=== PATIENT | male | born 1990 | race Caucasian/White ===

== ENCOUNTER 2016-12-04 13:02 | Emergency (ER) | payer OTHER ==
[2016-12-04] MEDS ORDERED: Sodium Chloride 0.9% 1,000 ML IV ONE (13:23)
--- NOTE | 2016-12-04 13:28 | EDM.PDOC ---
ED HPI GENERAL MEDICAL PROBLEM - General Chief Complaint: Genitourinary Problem Stated Complaint: PAIN IN BOTTOM LOWER BODY Time Seen by Provider: 12/04/16 13:23 Source of Information: Reports: Patient History Limitations: Reports: No Limitations - History of Present Illness INITIAL COMMENTS - FREE TEXT/NARRATIVE: History of present illness: [26-year-old male comes in complaining of genitourinary pain. Patient indicates that he had this pain once before in his scrotum but that was also in his flank at that time and it was secondary to a kidney stone. Now he is indicating that the pain is back but it is only in the scrotum not in the flank as it was prior. ] Review of systems: As per history of present illness and below otherwise all systems reviewed and negative. Past medical history: As per history of present illness and as reviewed below otherwise noncontributory. Surgical history: As per history of present illness and as reviewed below otherwise noncontributory. Social history: No reported history of drug or alcohol abuse. Family history: As per history of present illness and as reviewed below otherwise noncontributory. Physical exam: HEENT: Atraumatic, normocephalic, pupils reactive, negative for conjunctival pallor or scleral icterus, mucous membranes moist, throat clear, neck supple, nontender, trachea midline. Lungs: Clear to auscultation, breath sounds equal bilaterally, chest nontender. Heart: S1S2, regular, negative for clicks, rubs, or JVD. Abdomen: Soft, nondistended, nontender. Negative for masses or hepatosplenomegaly. Negative for costovertebral tenderness. Pelvis: Stable nontender. Genitourinary: Scrotum without swelling or erythema, no masses, assymetry or high riding, but otherwise painful to palpation. Patient indicates the pain alternates back and forth from one testes to be other, but denied pain with voiding Rectal: Deferred. Extremities: Atraumatic, negative for cords or calf pain. Neurovascular unremarkable. Neuro: Awake, alert, oriented. Cranial nerves II through XII unremarkable. Cerebellum unremarkable. Motor and sensory unremarkable throughout. Exam nonfocal. Diagnostics: [CBC, CMP, UA, ultrasound of testicles, GC of urine] Therapeutics: [IV fluid, azithromycin, Rocephin] Impression: [#1 full prophylaxis for STI, #2antibiotics for orchitis] Plan: [Levaquin and follow-up with Dr. Higgins] Definitive disposition and diagnosis as appropriate pending reevaluation and review of above. Treatments METEOROLOGIST LIAISON: Reports: Acetaminophen Groin Pain Score (Numeric/FACES): 5 - Related Data Allergies Allergy/AdvReac Type Severity Reaction Status Date / Time No Known Allergies Allergy Verified 12/04/16 13:18 Home Meds: Home Meds Levofloxacin [Levaquin] 500 mg PO Q24H #7 tablet 12/04/16 [Rx] Past Medical History - Past Surgical History HEENT Surgical History: Reports: Adenoidectomy, Tonsillectomy Social & Family History - Tobacco Use Smoking Status *Q: Never Smoker Second Hand Smoke Exposure: No - Caffeine Use Caffeine Use: Reports: Coffee, Energy Drinks, Soda - Recreational Drug Use Recreational Drug Use: Yes Drug Use in Last 12 Months: Yes Recreational Drug Type: Reports: Marijuana/Hashish Recreational Drug Use Frequency: Socially ED ROS GENERAL - Review of Systems Review Of Systems: See Below (History of present illness) ED EXAM, RENAL/ - Physical Exam Exam: See Below (See history of present illness) Course - Vital Signs Last Recorded V/S: Last Vital Signs Temp 36.3 C 12/04/16 14:29 Pulse 83 12/04/16 14:29 Resp 18 12/04/16 14:29 BP 141/72 H 12/04/16 14:29 Pulse Ox 100 12/04/16 14:29 - Orders/Labs/Meds Orders: Active Orders 24 hr Category Date Time Status Scrotal Duplex Ltd [US] Routine Exams 12/04/16 Taken Testicular US [Scrotum and Contents] [US] Stat Exams 12/04/16 14:13 Taken CHLAMYDIA TRACHOMATIS/GC AMPLF Stat Lab 12/04/16 15:14 Ordered Labs: Laboratory Tests 12/04/16 12/04/16 12/04/16 Range/Units 13:35 13:38 13:38 WBC 7.01 (4.0-11.0) K/uL RBC 5.45 (4.50-5.90) M/uL Hgb 16.9 (13.0-17.0) g/dL Hct 48.2 (38.0-50.0) % MCV 88.4 (80.0-98.0) fL MCH 31.0 (27.0-32.0) pg MCHC 35.1 (31.0-37.0) g/dL RDW Std Deviation 43.1 (28.0-62.0) fl RDW Coeff of Bonnie 13 (11.0-15.0) % Plt Count 250 (150-400) K/uL MPV 9.40 (7.40-12.00) fL Neut % (Auto) 65.5 (48.0-80.0) % Lymph % (Auto) 26.0 (16.0-40.0) % [place] % (Auto) 8.3 (0.0-15.0) % Eos % (Auto) 0.1 (0.0-7.0) % Baso % (Auto) 0.1 (0.0-1.5) % Neut # (Auto) 4.6 (1.4-5.7) K/uL Lymph # (Auto) 1.8 (0.6-2.4) K/uL [place] # (Auto) 0.6 (0.0-0.8) K/uL Eos # (Auto) 0.0 (0.0-0.7) K/uL Baso # (Auto) 0.0 (0.0-0.1) K/uL Nucleated RBC % 0.0 /100WBC Nucleated RBCs # 0 K/uL Sodium 141 (136-146) mmol/L Potassium 3.8 (3.5-5.1) mmol/L Chloride 104 (98-110) mmol/L Carbon Dioxide 26 (21-31) mmol/L BUN 18 (6.0-23.0) mg/dL Creatinine 1.0 (0.6-1.5) mg/dL Est Cr Clr Drug Dosing TNP Estimated GFR (MDRD) > 60.0 ml/min Glucose 91 (60-110) mg/dL Calcium 10.2 (8.8-10.8) mg/dL Total Bilirubin 0.6 (0.1-1.5) mg/dL AST 32 (5-40) IU/L ALT 36 (8-54) IU/L Alkaline Phosphatase 91 (40-150) Total Protein 8.5 H (6.0-8.0) g/dL Albumin 4.8 (3.5-5.0) g/dL Globulin 3.7 H (2.0-3.5) g/dL Albumin/Globulin Ratio 1.3 (1.3-2.8) Urine Color YELLOW Urine Appearance CLEAR Urine pH 7.0 (5.0-8.0) Ur Specific [place] 1.020 (1.001-1.035) Urine Protein NEGATIVE (NEGATIVE) mg/dL Urine Glucose (UA) NEGATIVE (NEGATIVE) mg/dL Urine Ketones NEGATIVE (NEGATIVE) mg/dL Urine Occult Blood NEGATIVE (NEGATIVE) Urine Nitrite NEGATIVE (NEGATIVE) Urine Bilirubin NEGATIVE (NEGATIVE) Urine Urobilinogen 0.2 (<2.0) EU/dL Ur Leukocyte Esterase NEGATIVE (NEGATIVE) Urine RBC 0-2 (0-2/HPF) Urine WBC 0-2 (0-5/HPF) Ur Epithelial Cells RARE (NONE-FEW) Urine Bacteria RARE (NEGATIVE) Meds: Medications Discontinued Medications Generic Name Dose Route Start Last Admin Trade Name Freq PRN Reason Stop Dose Admin Azithromycin 1,000 mg 12/04/16 15:15 Zithromax PO 12/04/16 15:16 ONETIME ONE Ceftriaxone Sodium 250 mg 12/04/16 15:15 Rocephin IM 12/04/16 15:16 ONETIME ONE Sodium Chloride 1,000 mls @ 999 mls/hr 12/04/16 13:23 12/04/16 13:41 Normal Saline IV 12/04/16 14:23 999 mls/hr STAT ONE Administration Ketorolac Tromethamine 30 mg 12/04/16 14:13 12/04/16 14:24 Toradol IVPUSH 12/04/16 14:14 30 mg ONETIME ONE Administration Departure - Departure Time of Disposition: 15:19 Disposition: Home, Self-Care 01 Condition: Good Clinical Impression: Orchitis, STI (sexually transmitted infection) - Discharge Information Prescriptions: Levofloxacin [Levaquin] 500 mg PO Q24H #7 tablet Referrals: PCP,None [Primary Care Provider] - Forms: ED Department Discharge Additional Instructions: The following information is given to patients seen in the emergency department who are being discharged to home. This information is to outline your options for follow-up care. We provide all patients seen in our emergency department with a follow-up referral. The need for follow-up, as well as the timing and circumstances, are variable depending upon the specifics of your emergency department visit. If you don't have a primary care physician on staff, we will provide you with a referral. We always advise you to contact your personal physician following an emergency department visit to inform them of the circumstance of the visit and for follow-up with them and/or the need for any referrals to a consulting specialist. The emergency department will also refer you to a specialist when appropriate. This referral assures that you have the opportunity for follow-up care with a specialist. All of these measure are taken in an effort to provide you with optimal care, which includes your follow-up. Under all circumstances we always encourage you to contact your private physician who remains a resource for coordinating your care. When calling for follow-up care, please make the office aware that this follow-up is from your recent emergency room visit. If for any reason you are refused follow-up, please contact the [facility] Emergency Department at and asked to speak to the emergency department charge nurse. Take medication as directed Follow-up with Dr. Higgins Return to ED as needed as discussed [facility] Specialty Care - Urology [address] [place] [id number] - My Orders Last 24 Hours: My Active Orders 12/04/16 14:13 Testicular US [Scrotum and Contents] [US] Stat 12/04/16 15:14 CHLAMYDIA TRACHOMATIS/GC AMPLF Stat - Assessment/Plan Last 24 Hours: My Active Orders 12/04/16 14:13 Testicular US [Scrotum and Contents] [US] Stat 12/04/16 15:14 CHLAMYDIA TRACHOMATIS/GC AMPLF Stat
[2016-12-04] MEDS ORDERED: Ketorolac 30 MG/ML SDV IVPUSH ONE (14:13)
[2016-12-04 14:14] LABS: CHLORIDE,CL 104 mmol/L (98-110); SODIUM,NA 141 mmol/L (136-146)
[2016-12-04] MEDS ORDERED: Azithromycin 250 MG Tab PO ONE (15:15)
[2016-12-04] MEDS ORDERED: cefTRIAXone 250 MG Vial IM ONE (15:15)
[2016-12-04] MEDS ORDERED: Lidocaine 1% 20 ML MDV INJECT ONE (15:24)
[2016-12-04 19:26] VITALS: BP 139/68
--- NOTE | 2016-12-05 16:49 | US ---
EXAM DATE: 12/04/16 PATIENT'S AGE: 26 Patient: HARPER CHE Facility: [place], [place] Site . Site : 1990 Study: US Testicle [id number] 2:51:35 PM Ordering Physician: Doctor Zaidi Final Report: INDICATION: Bilateral testicular pain. TECHNIQUE: Ultrasound of the scrotum and contents. Sonographic arreola-scale images were obtained with spectral and color Doppler waveform and spectral waveform analysis of the testicles. COMPARISON: None FINDINGS: Right testicle: 4.2 x 3.6 x 1.9 cm. Left testicle: 3.8 x 2.8 x 2.8 cm. Normal testicular echotexture. No masses. No suspicious calcifications. Normal arterial and venous and blood flow using Doppler and spectral waveform analysis. Epididymis: Unremarkable bilaterally. Normal blood flow. Other: No sign of hydrocele. No sign of varicocele. Scrotal wall is normal. IMPRESSION: Unremarkable ultrasound of the scrotum and contents. No sign of torsion or inflammation. Dictated by Nabor Robert MD @ 12/04/2016 3:13:13 PM Dictated by: Nabor Robert MD @ 12/04/2016 15:13:18 (Electronic Signature) Report Signed by Proxy. REMINGTON
--- NOTE | 2016-12-05 16:50 | US ---
EXAM DATE: 12/04/16 PATIENT'S AGE: 26 Patient: HARPER CHE Facility: [place], [place] Site . Site : 1990 Study: US Testicle [id number] 2:51:35 PM Ordering Physician: Doctor Zaidi Final Report: INDICATION: Bilateral testicular pain. TECHNIQUE: Ultrasound of the scrotum and contents. Sonographic arreola-scale images were obtained with spectral and color Doppler waveform and spectral waveform analysis of the testicles. COMPARISON: None FINDINGS: Right testicle: 4.2 x 3.6 x 1.9 cm. Left testicle: 3.8 x 2.8 x 2.8 cm. Normal testicular echotexture. No masses. No suspicious calcifications. Normal arterial and venous and blood flow using Doppler and spectral waveform analysis. Epididymis: Unremarkable bilaterally. Normal blood flow. Other: No sign of hydrocele. No sign of varicocele. Scrotal wall is normal. IMPRESSION: Unremarkable ultrasound of the scrotum and contents. No sign of torsion or inflammation. Dictated by Nabor Robert MD @ 12/04/2016 3:13:13 PM Dictated by: Nabor Robert MD @ 12/04/2016 15:13:18 (Electronic Signature) Report Signed by Proxy. REMINGTON
== END 2016-12-04 16:10 | disposition home or self-care (01) ==
LOC: MW.ED 13:02
DX: N45.2 Orchitis (principal); A64 Unspecified sexually transmitted disease
CPT/HCPCS: 36415; 76870; 80053; 81001; 85025; 87491; 87591; 93976; 96361; 96374; 96375; 99284; A9270; J0696; J1885; J7040; 99283

== ENCOUNTER 2019-01-28 06:33 | Day surgery (SDC) | payer BC, OTHER ==
[~2019-01-28 06:33] MED LIST: Lactated Ringers 1,000 ML IV SCH
[2019-01-28] MEDS ORDERED: Midazolam 1 MG/ML 2 ML SDV ONE (07:25)
[2019-01-28] MEDS ORDERED: Lidocaine 2% 5 ML SDV ONE (07:25)
[2019-01-28] MEDS ORDERED: fentaNYL 100 MCG/2 ML SDV ONE (07:25)
[2019-01-28] MEDS ORDERED: Propofol 200 MG/20 ML SDV ONE ×2 (07:25→08:11)
--- NOTE | 2019-01-28 07:41 | PCM.PREANE ---
Preanesthetic Assessment - Anesthesia/Transfusion/Family Hx Anesthesia History: Prior Anesthesia Without Reaction Family History of Anesthesia Reaction: No Transfusion History: No Prior Transfusion(s) - Review of Systems General: No Symptoms Pulmonary: No Symptoms Cardiovascular: No Symptoms Neurological: No Symptoms - Physical Assessment NPO Status Date: 01/27/19 Vital Signs: Last Vital Signs Temp 97.7 F 01/28/19 06:51 Pulse 107 H 01/28/19 06:51 Resp 16 01/28/19 06:51 BP 137/84 01/28/19 06:51 Pulse Ox 96 01/28/19 06:51 Height: 6 ft Weight: 113.852 kg ASA Class: 2 Mental Status: Alert & Oriented x3 Airway Class: Mallampati = 1 Dentition: Reports: Normal Dentition ROM/Head Extension: Full Lungs: Clear to Auscultation, Normal Respiratory Effort Cardiovascular: Regular Rate, Regular Rhythm - Allergies Allergies/Adverse Reactions: Allergies Allergy/AdvReac Type Severity Reaction Status Date / Time No Known Allergies Allergy Verified 01/22/19 16:04 - Blood Blood Available: No - Anesthesia Plan Pre-Op Medication Ordered: None - Acknowledgements Anesthesia Type Planned: General Anesthesia Pt an Appropriate Candidate for the Planned Anesthesia: Yes Alternatives and Risks of Anesthesia Discussed w Pt/Guardian: Yes Pt/Guardian Understands and Agrees with Anesthesia Plan: Yes Additional Comments: PMH: gerd, anxiety disorder PLAN: tiva PreAnesthesia Questionnaire HEENT History: Reports: Other (See Below) Other HEENT History: wears glasses Gastrointestinal History: Reports: Chronic Diarrhea, GERD Genitourinary History: Reports: Renal Calculus Other Genitourinary History: has passed kidney stones Musculoskeletal History: Reports: Fracture Other Musculoskeletal History: hx of fx wrist Psychiatric History: Reports: Anxiety Endocrine/Metabolic History: Reports: Obesity/BMI 30+ Dermatologic History: Reports: Eczema - Past Surgical History HEENT Surgical History: Reports: Tonsillectomy - SUBSTANCE USE Smoking Status *Q: Never Smoker Recreational Drug Use History: Yes - HOME MEDS Home Medications: Home Meds Diphenoxylate HCl/Atropine [Diphenoxylate-Atrop 2.5-0.025] 1 tab PO QID PRN [History] Esomeprazole Magnesium [Nexium] 20 mg PO DAILY 01/22/19 [History] LORazepam 1 mg PO BID PRN 01/22/19 [History] Venlafaxine [Venlafaxine HCl ER] 150 mg PO DAILY 01/22/19 [History] - CURRENT (IN HOUSE) MEDS Current Meds: Current Medications Lactated Ringer's (Ringers, Lactated) 1,000 mls @ 125 mls/hr IV ASDIRECTED FATIMAH Last Admin: 01/28/19 06:56 Dose: 125 mls/hr Discontinued Medications Fentanyl (Sublimaze) Confirm Administered Dose 100 mcg .ROUTE .STK-MED ONE Stop: 01/28/19 07:26 Lidocaine (Xylocaine-Mpf 2%) Confirm Administered Dose 5 ml .ROUTE .STK-MED ONE Stop: 01/28/19 07:26 Midazolam HCl (Versed 1 Mg/Ml) Confirm Administered Dose 2 mg .ROUTE .STK-MED ONE Stop: 01/28/19 07:26 Propofol (Diprivan 20 Ml) Confirm Administered Dose 400 mg .ROUTE .STK-MED ONE Stop: 01/28/19 07:26
[2019-01-28] MEDS ORDERED: Glycopyrrolate 0.2 MG/ML SDV ONE (08:14)
--- NOTE | 2019-01-28 08:41 | PCM.OPNOTE ---
- General Post-Op/Procedure Note Date of Surgery/Procedure: 01/28/19 Operative Procedure(s): Esophagogastroduodenoscopy with gastric and esophageal biopsy. Colonoscopy. Pre Op Diagnosis: Epigastric pain with progressive heartburn. Change in bowel habits. Post-Op Diagnosis: Mild gastritis and esophagitis. No evidence of colonic neoplasia or inflammatory bowel disease. Anesthesia Technique: MAC (ASA II) Primary Surgeon: Satya Steven Condition: Good Free Text/Narrative:: DICTATION [id number] CPT CODE 69725/[id number]
[2019-01-28] MEDS ORDERED: Lactated Ringers 1,000 ML IV SCH (08:45)
[2019-01-28 09:04] VITALS: BP 134/79; PULSE 92
--- NOTE | 2019-01-28 09:50 | OR ---
SURGEON: Sayta Steven M.D. DATE OF PROCEDURE: 01/28/2019 OPERATION PERFORMED: Colonoscopy. PRIMARY SURGEON: Satya Steven M.D. ANESTHESIA: MAC. ASA CLASSIFICATION: II. PREOPERATIVE DIAGNOSIS: Change in bowel habits. POSTOPERATIVE DIAGNOSIS: No evidence of neoplasia. DESCRIPTION OF PROCEDURE: With the patient having completed upper GI endoscopy, he was maintained in the left lateral decubitus position. Colonoscope was inserted into the rectum and advanced with minimal difficulty to the cecum where the colonoscope was retroflexed to visualize the ascending colon from below. The colonoscope was then straightened and slowly withdrawn. The cecum, ascending colon, hepatic flexure, transverse colon, splenic flexure, descending colon, sigmoid colon, and rectum were very well visualized. There were no acute inflammatory changes. No tumors or polyps were seen. No diverticular changes were noted. The colonoscope was withdrawn to the rectum and retroflexed to visualize the anal orifice from above. Again, no tumors or polyps were seen. There were no acute hemorrhoidal changes. The colonoscope was then straightened, the rectum aspirated, and colonoscope removed. The patient tolerated the procedure well and was taken to recovery room in stable condition. LING IVY /[id number]
--- NOTE | 2019-01-28 09:51 | PCM.POSTAN ---
POST ANESTHESIA ASSESSMENT - MENTAL STATUS Mental Status: Alert, Oriented - VITAL SIGNS Vital Signs: Last Vital Signs Temp 97.5 F 01/28/19 08:55 Pulse 92 01/28/19 08:55 Resp 14 01/28/19 08:55 BP 134/79 01/28/19 08:55 Pulse Ox 96 01/28/19 08:55 - RESPIRATORY Respiratory Status: Respiratory Rate WNL, Airway Patent, O2 Saturation Stable - CARDIOVASCULAR CV Status: Pulse Rate WNL, Blood Pressure Stable - GASTROINTESTINAL GI Status: No Symptoms - POST OP HYDRATION Hydration Status: Adequate & Stable
--- NOTE | 2019-01-28 09:59 | OR ---
SURGEON: Satya Steven M.D. DATE OF PROCEDURE: 01/28/2019 OPERATION PERFORMED: Esophagogastroduodenoscopy with biopsy. PRIMARY SURGEON: Satya Steven M.D. ANESTHESIA: MAC. ASA CLASSIFICATION: II. PREOPERATIVE DIAGNOSIS: Progressive heartburn and increasing reflux. POSTOPERATIVE DIAGNOSES: 1. Mild gastritis. 2. Mild distal esophagitis. DESCRIPTION OF PROCEDURE: The patient was taken to the endoscopy room and positioned on the endoscopy table in the left lateral decubitus position. Time-out was called for appropriate identification of the patient and procedure. Monitored anesthesia care was provided. A bite block was placed between the patient's teeth. The gastroscope was inserted through the bite block into the oropharynx and advanced without difficulty through the esophagus and stomach into the duodenum where examination was carried out in a retrograde fashion. The duodenum shows no acute inflammatory changes or ulcerations. The stomach does show mild gastritis. Antral biopsies were obtained to look for the presence of Helicobacter pylori. No acute ulcerations were noted. The gastroscope was retroflexed to visualize the proximal stomach. No significant hiatal hernia is noted. No ulcers were noted proximally. The gastroscope was then straightened and slowly withdrawn. GE junction was well defined but does show some mild inflammatory changes. Separate biopsies of the distal esophagus were obtained. The esophagus demonstrates good contractility. No mid or proximal lesions were identified. The vocal cords were visualized as the scope was withdrawn and noted to move symmetrically. The gastroscope was then removed with the patient having tolerated this portion of the procedure well. Following colonoscopy, he was taken to recovery room in stable condition. LING / CATA /[id number]
--- NOTE | 2019-01-28 10:07 | PCM48HPAN ---
Post Anesthesia Note - EVALUATION WITHIN 48HRS OF ANESTHETIC Vital Signs: Last Vital Signs Temp 97.5 F 01/28/19 08:55 Pulse 92 01/28/19 08:55 Resp 14 01/28/19 08:55 BP 134/79 01/28/19 08:55 Pulse Ox 96 01/28/19 08:55 - COMMENTS/OBSERVATIONS Free Text/Narrative:: discharged by pacu nurse without notifying anesthesia provider
== END 2019-01-28 09:56 | disposition home or self-care (01) ==
LOC: MW.SDS 06:33
PROVIDERS: ATTEND Surgery
DX: K29.50 Unspecified chronic gastritis without bleeding (principal); K21.0 Gastro-esophageal reflux disease with esophagitis; B96.81 Helicobacter pylori [H. pylori] as the cause of diseases classified elsewhere; F41.9 Anxiety disorder, unspecified; E66.9 Obesity, unspecified; Z79.899 Other long term (current) drug therapy; Z87.891 Personal history of nicotine dependence; Z68.34 Body mass index [BMI] 34.0-34.9, adult
CPT/HCPCS: 43239; 45378; J2001; J2250; J2704; J3010; J3490; J7120

== ENCOUNTER 2019-05-13 13:53 | Emergency (ER) | payer BC, OTHER ==
--- NOTE | 2019-05-13 14:57 | EDM.PDOC ---
<Clarice Manning - Last Filed: 05/13/19 14:57> ED HPI GENERAL MEDICAL PROBLEM - General Chief Complaint: Chest Pain Stated Complaint: CHEST PAIN Time Seen by Provider: 05/13/19 14:57 Source of Information: Reports: Patient History Limitations: Reports: No Limitations chest Pain Score (Numeric/FACES): 5 - Related Data Allergies Allergy/AdvReac Type Severity Reaction Status Date / Time No Known Allergies Allergy Verified 05/13/19 14:07 Home Meds: Home Meds Diphenoxylate HCl/Atropine [Diphenoxylate-Atrop 2.5-0.025] 1 tab PO QID PRN [History] Esomeprazole Magnesium [Nexium] 20 mg PO DAILY 01/22/19 [History] LORazepam 1 mg PO BID PRN 01/22/19 [History] Venlafaxine [Venlafaxine HCl ER] 150 mg PO DAILY 01/22/19 [History] Past Medical History HEENT History: Reports: Other (See Below) Other HEENT History: wears glasses Gastrointestinal History: Reports: Chronic Diarrhea, GERD Genitourinary History: Reports: Renal Calculus Other Genitourinary History: has passed kidney stones Musculoskeletal History: Reports: Fracture Other Musculoskeletal History: hx of fx wrist Psychiatric History: Reports: Anxiety Endocrine/Metabolic History: Reports: Obesity/BMI 30+ Dermatologic History: Reports: Eczema - Past Surgical History HEENT Surgical History: Reports: Tonsillectomy Social & Family History - Family History Family Medical History: Noncontributory - Tobacco Use Smoking Status *Q: Never Smoker - Caffeine Use Caffeine Use: Reports: Coffee, Energy Drinks, Soda - Recreational Drug Use Recreational Drug Use: No Course - Vital Signs Last Recorded V/S: Last Vital Signs Temp 98.0 F 05/13/19 14:05 Pulse 92 05/13/19 15:09 Resp 20 05/13/19 15:09 BP 156/74 H 05/13/19 15:09 Pulse Ox 98 05/13/19 15:09 - Orders/Labs/Meds Orders: Active Orders 24 hr Category Date Time Status EKG Documentation Completion [RC] STAT Care 05/13/19 14:46 Active Sodium Chloride 0.9% [Saline Flush] Med 05/13/19 14:58 Active 10 ml FLUSH ASDIRECTED PRN Sodium Chloride 0.9% [Saline Flush] Med 05/13/19 14:58 Active 2.5 ml FLUSH ASDIRECTED PRN Saline Lock Insert [OM.PC] Stat Oth 05/13/19 14:58 Ordered Medication Orders Sodium Chloride (Saline Flush) 10 ml FLUSH ASDIRECTED PRN PRN Reason: Keep Vein Open Last Admin: 05/13/19 15:08 Dose: 10 ml Sodium Chloride (Saline Flush) 2.5 ml FLUSH ASDIRECTED PRN PRN Reason: Keep Vein Open Last Admin: 05/13/19 15:08 Dose: 2.5 ml Labs: Laboratory Tests 05/13/19 05/13/19 05/13/19 Range/Units 14:54 14:54 14:54 WBC 8.68 (4.0-11.0) K/uL RBC 5.71 (4.50-5.90) M/uL Hgb 17.9 H (13.0-17.0) g/dL Hct 49.5 (38.0-50.0) % MCV 86.7 (80.0-98.0) fL MCH 31.3 (27.0-32.0) pg MCHC 36.2 (31.0-37.0) g/dL RDW Std Deviation 40.6 (28.0-62.0) fl RDW Coeff of Bonnie 13 (11.0-15.0) % Plt Count 263 (150-400) K/uL MPV 9.40 (7.40-12.00) fL Neut % (Auto) 68.2 (48.0-80.0) % Lymph % (Auto) 24.9 (16.0-40.0) % [place] % (Auto) 6.3 (0.0-15.0) % Eos % (Auto) 0.5 (0.0-7.0) % Baso % (Auto) 0.1 (0.0-1.5) % Neut # (Auto) 5.9 H (1.4-5.7) K/uL Lymph # (Auto) 2.2 (0.6-2.4) K/uL [place] # (Auto) 0.6 (0.0-0.8) K/uL Eos # (Auto) 0.0 (0.0-0.7) K/uL Baso # (Auto) 0.0 (0.0-0.1) K/uL Nucleated RBC % 0.0 /100WBC Nucleated RBCs # 0 K/uL D-Dimer, Quantitative 0.32 (0.0-0.50) mg/L FEU Sodium 138 (136-148) mmol/L Potassium 3.8 (3.5-5.1) mmol/L Chloride 101 (98-107) mmol/L Carbon Dioxide 20.3 L (21.0-32.0) mmol/L BUN 16 (7.0-18.0) mg/dL Creatinine 0.9 (0.8-1.3) mg/dL Est Cr Clr Drug Dosing 136.52 mL/min Estimated GFR (MDRD) > 60.0 ml/min Glucose 92 (74-106) mg/dL Calcium 9.4 (8.5-10.1) mg/dL Magnesium (1.8-2.4) mg/dL Total Bilirubin 0.5 (0.2-1.0) mg/dL AST 37 (15-37) IU/L ALT 67 H (14-63) IU/L Alkaline Phosphatase 98 (46-116) U/L Troponin I < 0.050 (0.000-0.056) ng/mL Total Protein 8.6 H (6.4-8.2) g/dL Albumin 4.3 (3.4-5.0) g/dL Globulin 4.3 H (2.6-4.0) g/dL Albumin/Globulin Ratio 1.0 (0.9-1.6) TSH 3rd Generation (0.36-3.74) uIU/mL 05/13/19 Range/Units 14:54 WBC (4.0-11.0) K/uL RBC (4.50-5.90) M/uL Hgb (13.0-17.0) g/dL Hct (38.0-50.0) % MCV (80.0-98.0) fL MCH (27.0-32.0) pg MCHC (31.0-37.0) g/dL RDW Std Deviation (28.0-62.0) fl RDW Coeff of Bonnie (11.0-15.0) % Plt Count (150-400) K/uL MPV (7.40-12.00) fL Neut % (Auto) (48.0-80.0) % Lymph % (Auto) (16.0-40.0) % [place] % (Auto) (0.0-15.0) % Eos % (Auto) (0.0-7.0) % Baso % (Auto) (0.0-1.5) % Neut # (Auto) (1.4-5.7) K/uL Lymph # (Auto) (0.6-2.4) K/uL [place] # (Auto) (0.0-0.8) K/uL Eos # (Auto) (0.0-0.7) K/uL Baso # (Auto) (0.0-0.1) K/uL Nucleated RBC % /100WBC Nucleated RBCs # K/uL D-Dimer, Quantitative (0.0-0.50) mg/L FEU Sodium (136-148) mmol/L Potassium (3.5-5.1) mmol/L Chloride (98-107) mmol/L Carbon Dioxide (21.0-32.0) mmol/L BUN (7.0-18.0) mg/dL Creatinine (0.8-1.3) mg/dL Est Cr Clr Drug Dosing mL/min Estimated GFR (MDRD) ml/min Glucose (74-106) mg/dL Calcium (8.5-10.1) mg/dL Magnesium 2.1 (1.8-2.4) mg/dL Total Bilirubin (0.2-1.0) mg/dL AST (15-37) IU/L ALT (14-63) IU/L Alkaline Phosphatase (46-116) U/L Troponin I (0.000-0.056) ng/mL Total Protein (6.4-8.2) g/dL Albumin (3.4-5.0) g/dL Globulin (2.6-4.0) g/dL Albumin/Globulin Ratio (0.9-1.6) TSH 3rd Generation 1.15 (0.36-3.74) uIU/mL Meds: Medications Generic Name Dose Route Start Last Admin Trade Name Freq PRN Reason Stop Dose Admin Sodium Chloride 10 ml 05/13/19 14:58 05/13/19 15:08 Saline Flush FLUSH 10 ml ASDIRECTED PRN Administration Keep Vein Open Sodium Chloride 2.5 ml 05/13/19 14:58 05/13/19 15:08 Saline Flush FLUSH 2.5 ml ASDIRECTED PRN Administration Keep Vein Open Discontinued Medications Generic Name Dose Route Start Last Admin Trade Name Jairq PRN Reason Stop Dose Admin Diltiazem HCl 20 mg 05/13/19 15:35 Diltiazem IVPUSH 05/13/19 15:36 ONETIME ONE Sodium Chloride 1,000 mls @ 999 mls/hr 05/13/19 14:58 05/13/19 15:08 Normal Saline IV 05/13/19 15:58 999 mls/hr STAT ONE Administration Departure - Departure Referrals: PCP,Not In Area [Primary Care Provider] - Forms: ED Department Discharge Sepsis Event Note - Evaluation Sepsis Screening Result: No Definite Risk - Focused Exam Vital Signs: Vital Signs Temp Pulse Resp BP Pulse Ox 05/13/19 15:09 92 20 156/74 H 98 05/13/19 14:05 98.0 F 131 H 20 169/100 H 100 Date Exam was Performed: 05/13/19 Time Exam was Performed: 14:57 <Jessica Sims - Last Filed: 05/13/19 16:19> ED HPI GENERAL MEDICAL PROBLEM - General Source of Information: Reports: Patient, Prison Records - History of Present Illness INITIAL COMMENTS - FREE TEXT/NARRATIVE: Presents complaining of 5 out of 10 chest pain. It is substernal he has had it for about a week. It is intermittent, lasting for about 15 seconds at a time. It is a fluttery sensation which she says starts in his chest and goes towards his neck. Nothing in particular provokes it and it always stops on its own. Is associated with feeling lightheaded. Sometimes his arms are numb. Sometimes he is diaphoresis or cold sweats. He states he does drink coffee but no more than about 16 ounces a day. Sepsis Event Note - Focused Exam Date Exam was Performed: 05/13/19 Time Exam was Performed: 16:18
[2019-05-13] MEDS ORDERED: Sodium Chloride 0.9% 2.5 ML Syringe FLUSH PRN (14:58)
[2019-05-13] MEDS ORDERED: Sodium Chloride 0.9% 1,000 ML IV ONE (14:58)
[2019-05-13] MEDS ORDERED: Sodium Chloride 0.9% 10 ML Syringe FLUSH PRN (14:58)
--- NOTE | 2019-05-13 15:25 | CR ---
Chest: AP portable view of the chest was obtained. Comparison: No prior chest imaging. Heart size and mediastinum are normal. Lungs are clear. Bony structures are grossly intact. Impression: 1. Nothing acute is seen on portable chest x-ray. Diagnostic code #1 Study was dictated in [place] Standard Time
[2019-05-13] MEDS ORDERED: Diltiazem 25 MG/5 ML SDV IVPUSH ONE (15:35)
[2019-05-13 15:36] LABS: BLOOD UREA NITROGEN,BUN 16 mg/dL (7.0-18.0); CARBON DIOXIDE,CO2 20.3 mmol/L (21.0-32.0); CHLORIDE,CL 101 mmol/L (98-107); GLUCOSE RANDOM 92 mg/dL (74-106); POTASSIUM,K 3.8 mmol/L (3.5-5.1); SODIUM,NA 138 mmol/L (136-148)
--- NOTE | 2019-05-13 16:21 | EDM.PDOC ---
ED HPI GENERAL MEDICAL PROBLEM - General Chief Complaint: Chest Pain Stated Complaint: CHEST PAIN Time Seen by Provider: 05/13/19 14:57 Source of Information: Reports: Patient - History of Present Illness INITIAL COMMENTS - FREE TEXT/NARRATIVE: Presents complaining of chest pain. 5 out of 10. Began a week ago. He has had daily episodes of intermittent discomfort since then. The pain is a fluttery sensation lasting about 15 seconds at a time. Stops on its own. No exacerbating or alleviating factors. It is associated with feeling dizzy at times. Sometimes his arms are numb. No nausea or vomiting. Some diaphoresis and cold sweats. No prior history of this. States he does drink caffeinated beverages, usually about 16 ounces a day. Denies history of thyroid disease. No recent weight changes. No hot or cold intolerance. Denies use of energy drinks. chest Pain Score (Numeric/FACES): 5 - Related Data Allergies Allergy/AdvReac Type Severity Reaction Status Date / Time No Known Allergies Allergy Verified 05/13/19 14:07 Home Meds: Home Meds Diphenoxylate HCl/Atropine [Diphenoxylate-Atrop 2.5-0.025] 1 tab PO QID PRN [History] Esomeprazole Magnesium [Nexium] 20 mg PO DAILY 01/22/19 [History] LORazepam 1 mg PO BID PRN 01/22/19 [History] Venlafaxine [Venlafaxine HCl ER] 150 mg PO DAILY 01/22/19 [History] Past Medical History HEENT History: Reports: Other (See Below) Other HEENT History: wears glasses Gastrointestinal History: Reports: Chronic Diarrhea, GERD Genitourinary History: Reports: Renal Calculus Other Genitourinary History: has passed kidney stones Musculoskeletal History: Reports: Fracture Other Musculoskeletal History: hx of fx wrist Psychiatric History: Reports: Anxiety Endocrine/Metabolic History: Reports: Obesity/BMI 30+ Dermatologic History: Reports: Eczema - Past Surgical History HEENT Surgical History: Reports: Tonsillectomy Social & Family History - Family History Family Medical History: Noncontributory - Tobacco Use Smoking Status *Q: Never Smoker - Caffeine Use Caffeine Use: Reports: Coffee, Energy Drinks, Soda - Recreational Drug Use Recreational Drug Use: No ED ROS GENERAL - Review of Systems Review Of Systems: See Below Constitutional: Denies: Fever, Chills, Weakness, Fatigue, Night Sweats, Weight Gain Respiratory: Denies: Shortness of Breath Cardiovascular: Reports: Chest Pain, Lightheadedness. Denies: Dyspnea on Exertion, Edema, Orthopnea GI/Abdominal: Denies: Abdominal Pain, Nausea, Vomiting Musculoskeletal: Denies: Muscle Pain Neurological: Reports: Dizziness, Numbness. Denies: Headache ED EXAM, GENERAL - Physical Exam Exam: See Below Free Text/Narrative:: General: alert, well appearing, no acute distress. Nondiaphoretic and looks pretty comfortable. HEENT: Atraumatic, normocephalic, pupils reactive, negative for conjunctival pallor or scleral icterus, mucous membranes moist, throat clear, handling oral secretions well. Neck: supple, nontender, trachea midline. No masses. Lungs: Clear to auscultation, breath sounds equal bilaterally, chest nontender. Heart: S1S2, regular, negative for clicks, rubs, or JVD. No exophthalmos. Pulses are strong and regular. Abdomen: Soft, nondistended, nontender. Negative for masses or hepatosplenomegaly. Skin: warm, dry, good turgor. Musculoskeletal: soft compartments. Extremities: Atraumatic, negative for cords or calf pain. Neurovascular unremarkable. Neuro: Awake, alert, oriented. Cranial nerves II through XII unremarkable. Cerebellum unremarkable. Motor and sensory intact throughout. Exam nonfocal. Course - Vital Signs Text/Narrative:: Cbc:unremarkable Cmp: nl TSH: nl Trop: neg Mg: nl D dimer: neg Coags: Ek bpm PSVT normal axis normal MD, QRS, QTc intervals; no acute ST changes ; incomplete right bundle branch block Note:EKG was done shortly after patient into the emergency department. After he has been settled in the emergency department and was in the examination chair , from that point on, his pulse remained under 100. Cxr: no acute dz 4:00pm Pulse is now 90, without having recd diltiazem. Will hold the diltiazem , reevaluate. 5:11pm HR 89 nsr on bedside monitor. Patient says he still has some paresthesias in his fingers and hands. However, with eyes closed, he is able to accurately distinguish whether stimuli are applied to the right versus left side of his body. Pulses strong, equal, regular. Patient advised to cut down on his caffeine intake. He says he already has an appointment to see his family doctor tomorrow anyway, which I think is appropriate. He is nondiaphoretic, comfortable appearing, and appropriate for discharge. Last Recorded V/S: Last Vital Signs Temp 98.0 F 05/13/19 14:05 Pulse 85 05/13/19 16:57 Resp 20 05/13/19 16:57 BP 135/71 05/13/19 16:57 Pulse Ox 98 05/13/19 16:57 - Orders/Labs/Meds Orders: Active Orders 24 hr Category Date Time Status EKG Documentation Completion [RC] STAT Care 05/13/19 14:46 Active Ready for Discharge [RC] PER UNIT ROUTINE Care 05/13/19 17:16 Active Saline Lock Insert [OM.PC] Stat Oth 05/13/19 14:58 Ordered Labs: Laboratory Tests 05/13/19 05/13/19 05/13/19 Range/Units 14:54 14:54 14:54 WBC 8.68 (4.0-11.0) K/uL RBC 5.71 (4.50-5.90) M/uL Hgb 17.9 H (13.0-17.0) g/dL Hct 49.5 (38.0-50.0) % MCV 86.7 (80.0-98.0) fL MCH 31.3 (27.0-32.0) pg MCHC 36.2 (31.0-37.0) g/dL RDW Std Deviation 40.6 (28.0-62.0) fl RDW Coeff of Bonnie 13 (11.0-15.0) % Plt Count 263 (150-400) K/uL MPV 9.40 (7.40-12.00) fL Neut % (Auto) 68.2 (48.0-80.0) % Lymph % (Auto) 24.9 (16.0-40.0) % [place] % (Auto) 6.3 (0.0-15.0) % Eos % (Auto) 0.5 (0.0-7.0) % Baso % (Auto) 0.1 (0.0-1.5) % Neut # (Auto) 5.9 H (1.4-5.7) K/uL Lymph # (Auto) 2.2 (0.6-2.4) K/uL [place] # (Auto) 0.6 (0.0-0.8) K/uL Eos # (Auto) 0.0 (0.0-0.7) K/uL Baso # (Auto) 0.0 (0.0-0.1) K/uL Nucleated RBC % 0.0 /100WBC Nucleated RBCs # 0 K/uL D-Dimer, Quantitative 0.32 (0.0-0.50) mg/L FEU Sodium 138 (136-148) mmol/L Potassium 3.8 (3.5-5.1) mmol/L Chloride 101 (98-107) mmol/L Carbon Dioxide 20.3 L (21.0-32.0) mmol/L BUN 16 (7.0-18.0) mg/dL Creatinine 0.9 (0.8-1.3) mg/dL Est Cr Clr Drug Dosing 136.52 mL/min Estimated GFR (MDRD) > 60.0 ml/min Glucose 92 (74-106) mg/dL Calcium 9.4 (8.5-10.1) mg/dL Magnesium (1.8-2.4) mg/dL Total Bilirubin 0.5 (0.2-1.0) mg/dL AST 37 (15-37) IU/L ALT 67 H (14-63) IU/L Alkaline Phosphatase 98 (46-116) U/L Troponin I < 0.050 (0.000-0.056) ng/mL Total Protein 8.6 H (6.4-8.2) g/dL Albumin 4.3 (3.4-5.0) g/dL Globulin 4.3 H (2.6-4.0) g/dL Albumin/Globulin Ratio 1.0 (0.9-1.6) TSH 3rd Generation (0.36-3.74) uIU/mL 05/13/19 Range/Units 14:54 WBC (4.0-11.0) K/uL RBC (4.50-5.90) M/uL Hgb (13.0-17.0) g/dL Hct (38.0-50.0) % MCV (80.0-98.0) fL MCH (27.0-32.0) pg MCHC (31.0-37.0) g/dL RDW Std Deviation (28.0-62.0) fl RDW Coeff of Bonnie (11.0-15.0) % Plt Count (150-400) K/uL MPV (7.40-12.00) fL Neut % (Auto) (48.0-80.0) % Lymph % (Auto) (16.0-40.0) % [place] % (Auto) (0.0-15.0) % Eos % (Auto) (0.0-7.0) % Baso % (Auto) (0.0-1.5) % Neut # (Auto) (1.4-5.7) K/uL Lymph # (Auto) (0.6-2.4) K/uL [place] # (Auto) (0.0-0.8) K/uL Eos # (Auto) (0.0-0.7) K/uL Baso # (Auto) (0.0-0.1) K/uL Nucleated RBC % /100WBC Nucleated RBCs # K/uL D-Dimer, Quantitative (0.0-0.50) mg/L FEU Sodium (136-148) mmol/L Potassium (3.5-5.1) mmol/L Chloride (98-107) mmol/L Carbon Dioxide (21.0-32.0) mmol/L BUN (7.0-18.0) mg/dL Creatinine (0.8-1.3) mg/dL Est Cr Clr Drug Dosing mL/min Estimated GFR (MDRD) ml/min Glucose (74-106) mg/dL Calcium (8.5-10.1) mg/dL Magnesium 2.1 (1.8-2.4) mg/dL Total Bilirubin (0.2-1.0) mg/dL AST (15-37) IU/L ALT (14-63) IU/L Alkaline Phosphatase (46-116) U/L Troponin I (0.000-0.056) ng/mL Total Protein (6.4-8.2) g/dL Albumin (3.4-5.0) g/dL Globulin (2.6-4.0) g/dL Albumin/Globulin Ratio (0.9-1.6) TSH 3rd Generation 1.15 (0.36-3.74) uIU/mL Meds: Medications Discontinued Medications Generic Name Dose Route Start Last Admin Trade Name Freq PRN Reason Stop Dose Admin Diltiazem HCl 20 mg 05/13/19 15:35 05/13/19 16:39 Diltiazem IVPUSH 05/13/19 15:36 Not Given ONETIME ONE Sodium Chloride 1,000 mls @ 999 mls/hr 05/13/19 14:58 05/13/19 15:08 Normal Saline IV 05/13/19 15:58 999 mls/hr STAT ONE Administration Sodium Chloride 10 ml 05/13/19 14:58 05/13/19 15:08 Saline Flush FLUSH 10 ml ASDIRECTED PRN Administration Keep Vein Open Sodium Chloride 2.5 ml 05/13/19 14:58 05/13/19 15:08 Saline Flush FLUSH 2.5 ml ASDIRECTED PRN Administration Keep Vein Open Departure - Departure Time of Disposition: 17:13 Disposition: Home, Self-Care 01 Condition: Good Clinical Impression: Palpitations Instructions: Nonspecific Chest Pain, [id number], Palpitations, [id number] Referrals: PCP,Not In Area [Primary Care Provider] - (You stated that you have an appointment to see your primary care provider on tomorrow, 05/14/2019. Please keep this appointment. Avoid running and any other strenuous activity until you are seen and cleared by your primary care physician and by a field artillery basic. [facility] [address] [place] [address] Please follow-up with a field artillery basic within 2 weeks of this emergency department visit. ) Forms: ED Department Discharge Additional Instructions: The following information is given to patients seen in the emergency department who are being discharged to home. This information is to outline your options for follow-up care. We provide all patients seen in our emergency department with a follow-up referral. The need for follow-up, as well as the timing and circumstances, are variable depending upon the specifics of your emergency department visit. If you don't have a primary care physician on staff, we will provide you with a referral. We always advise you to contact your personal physician following an emergency department visit to inform them of the circumstance of the visit and for follow-up with them and/or the need for any referrals to a consulting specialist. The emergency department will also refer you to a specialist when appropriate. This referral assures that you have the opportunity for follow-up care with a specialist. All of these measure are taken in an effort to provide you with optimal care, which includes your follow-up. Under all circumstances we always encourage you to contact your private physician who remains a resource for coordinating your care. When calling for follow-up care, please make the office aware that this follow-up is from your recent emergency room visit. If for any reason you are refused follow-up, please contact the [facility] Emergency Department at and ask to speak to the emergency department charge nurse. Sepsis Event Note - Evaluation Sepsis Screening Result: No Definite Risk - Focused Exam Vital Signs: Vital Signs Temp Pulse Resp BP Pulse Ox 05/13/19 16:57 85 20 135/71 98 05/13/19 15:09 92 20 156/74 H 98 05/13/19 14:05 98.0 F 131 H 20 169/100 H 100 Date Exam was Performed: 05/13/19 Time Exam was Performed: 20:53 - My Orders Last 24 Hours: My Active Orders 05/13/19 17:16 Ready for Discharge [RC] PER UNIT ROUTINE - Assessment/Plan Last 24 Hours: My Active Orders 05/13/19 17:16 Ready for Discharge [RC] PER UNIT ROUTINE
[2019-05-13 16:58] VITALS: BP 135/71; PULSE 85
== END 2019-05-13 17:24 | disposition home or self-care (01) ==
LOC: MW.ED 13:53
DX: R00.2 Palpitations (principal); R07.9 Chest pain, unspecified; K21.9 Gastro-esophageal reflux disease without esophagitis; F41.9 Anxiety disorder, unspecified; E66.9 Obesity, unspecified; Z79.899 Other long term (current) drug therapy; Z68.32 Body mass index [BMI] 32.0-32.9, adult
CPT/HCPCS: 36415; 71045; 80053; 83735; 84443; 84484; 85025; 85379; 93005; 96360; 99285; J7030; 99284